=== PATIENT | male | born 2000 | race Caucasian/White ===

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

== ENCOUNTER 2021-05-04 16:01 | Inpatient (IN) | payer OTHER, SELFPAY ==
[2021-05-04] VITALS (31 sets, daily range): BP systolic 137–154; BP diastolic 75–100; PULSE 73–108; RESP 14–37; TEMP 37–37.2; O2SAT 98–100
--- NOTE | 2021-05-04 16:00 | DI.RAD_ITS ---
Exam(s) XR CHEST 2V PA LATERAL EXAM: XR CHEST 2V PA LATERAL CLINICAL HISTORY: Right chest wall pain, R/O Pneumothorax TECHNIQUE: 2D digital imaging was performed. COMPARISON: No exams were available for comparison FINDINGS: MEDIASTINUM: Slight leftward mediastinal shift. HEART: Normal. PULMONARY VASCULATURE: Normal. LUNGS: Clear. PLEURAL SPACE: There is a moderately large right pneumothorax. There is a slight shift of the medias tinum to the left. BONE:Within normal limits for the patient's age. OTHER FINDINGS:Normal. IMPRESSION: Moderately large right pneumothorax with the slight mediastinal shift to the left. Tension pneumotho rax should be considered. The virtual Radiology group discussed the findings with the emergency department on the date of the e xamination. DATA REPOSITORY: RADIATION DOSE DELIVERED:
--- NOTE | 2021-05-04 16:07 | ED.GENADUL_ITS ---
Discharge Plan Disposition Patient Disposition: [facility] INPATIENT Condition: Improving Discharge Details Clinical Impression: Spontaneous pneumothorax Admit Date/Time: 05/04/21 16:55 Admit Provider: Alvin Caballero Attending Provider: Alvin Caballero Primary Care Provider: Juliano Cast ED Provider: Rosey Rouse Discharge Data Discharge Date/Time-TO BE ENTERED AT DEPARTURE: 05/04/21 18:07 Medical Decision Making <Rosey Rouse - Last Filed: 05/04/21 19:48> 21-year-old male presents to the ER with chief complaint of right posterior chest wall pop and increased pain when taking a deep breath which occurred approximately 2 hours ago while riding a bike. He reports that this is happened to him previously and resolved in approximately 1 day. He was sent here from urgent care to rule out pneumothorax. She reports that since onset the pain is somewhat better. On initial exam he is alert and oriented, nontachycardic, does have lung sounds in all lung licea. No crackles or rhonchi. Non-smoker denies any drugs or alcohol. Call received from [place] by my colleague WANG Riggs radiologist, report positive pneumothorax. IV started on patient, medications hydrocortisone Zofran ordered as needed for pain and nausea. Patient remained hemodynamically stable at this time. Awaiting official [facility] report. Will prepare for possible pigtail chest tube insertion. Discussed plan of care with patient who verbalizes understanding. Page out to general surgery for possible admission. Imaging protocol: XR of the chest. Views: 2 views. COMPARISON: CT CHEST/ABD/PEL W 04/21/2019 9:27 PM FINDINGS: Lungs: Unremarkable. No consolidation. Pleural spaces: Moderate to large right apical pneumothorax measuring approximately 5 centimetres in craniocaudad dimension in the central apex. Heart/Mediastinum: Slight mediastinal shift to the left. No cardiomegaly. Bones/joints: Unremarkable. IMPRESSION: Moderate to large right apical pneumothorax 1653: Spoke with Dr. Caballero with general surgery discussed patient case in detail,he does agree to accept patient for admission and is in the process of viewing the chest x-ray. Dr. Trujillo at patient bedside for evaluation to place pigtail chest tube. Call made to patient's mother Gina at patient's request. Voicemail left for mom to call back. 1713: Patient verbally consented for pigtail chest tube insertion by myself and Dr. Trujillo. Patient on continuous cardiac monitoring. Procedure in process at this time. Patient tolerated well vital signs remained stable. 173: Procedure complete, XR at BS, Patient verbally reports improvement in symptoms after tube insertion. Patient remained hemodynamically stable alert and conversive throughout procedure. Plan is for patient to be admitted for observation. COMPARISON: CR XR CHEST 2V PA LATERAL 05/04/2021 4:17 PM FINDINGS: Tubes, catheters and devices: New right chest tube projects in right upper lung. Lungs: Unremarkable. No consolidation. Pleural spaces: The right pneumothorax has significantly decreased in size. It measures approximately 1.2 cm in craniocaudad dimension at the apex. Heart/Mediastinum: Unremarkable. No cardiomegaly. Bones/joints: Unremarkable. IMPRESSION: New right apically chest tube with significant reduction in the right apical pneumothorax which now measures 1.2 cm at the apex Thank you for allowing us to participate in the care of your patient. Dictated and Authenticated by: Sandra Gonzalez MD 1821: Patient transported up to the inpatient floor with chest tube in place. Hemodynamically stable. Discussed plan of care with patient verbalized understanding. HPI <Rosey Rouse - Last Filed: 05/04/21 19:48> General Mode of arrival: ambulatory . Date/Time Provider Initiated Documentation: 05/04/21 16:02 . Limitations to Documentation: no limitations . Information obtained by: patient . HPI Narrative: 21-year-old male presents to the ER with chief complaint of right posterior chest wall pop and increased pain when taking a deep breath which occurred approximately 2 hours ago while riding a bike. He reports that this is happened to him previously and resolved in approximately 1 day. He was sent here from urgent care to rule out pneumothorax. She reports that since onset the pain is somewhat better. On initial exam he is alert and oriented, nontachycardic, does have lung sounds in all lung licea/slightly diminished on right. No crackles or rhonchi. Non- smoker denies any drugs or alcohol. Related Data Home Medications Medication Instructions Recorded Confirmed omega-3 fatty acids 500 mg capsule 500 mg PO DAILY 11/19/20 05/04/21 Allergies Allergy/AdvReac Type Severity Reaction Status Date / Time No Known Allergies Allergy Unverified 05/04/21 16:08 General ALICE: 2 Review of Systems <Rosey Rouse - Last Filed: 05/04/21 19:48> All systems reviewed & are unremarkable except as noted in HPI and below Constitutional Constitutional: Reports system reviewed and no additional complaints, except as documented ENT Ears, Nose, Mouth, and Throat: Denies vertigo, Denies hoarseness and Denies neck pain Cardiovascular Cardiovascular: Denies acrocyanosis, Reports chest pain at rest (Posterior right chest pain), Denies syncope, Denies leg edema, Denies lightheadedness and Reports dyspnea Respiratory Respiratory: Denies cough, Denies hemoptysis, Reports pain on inspiration and Reports dyspnea Gastrointestinal Gastrointestinal: Denies abdominal pain, Denies nausea and Denies vomiting Musculoskeletal Musculoskeletal: Reports as per HPI, Reports back pain (Right lower chest wall pain with deep inspiration) and Denies neck pain Neurologic Neurologic: Denies vertigo and Denies syncope PFS <Rosey Rouse - Last Filed: 05/04/21 19:48> Medical History Acne vulgaris (02/06/18) Elevated blood pressure reading Fracture of humerus (03/15/13) Fall onto some rock. S/P closed reduction and percutaneous pinning; application of long arm splint. Routine sports examination for healthy child or adolescent (11/22/12) Varicocele (02/21/13) left- evaluated/followed by urology in the past Surgical History History of open reduction and internal fixation (ORIF) procedure Left arm 2013- humerus repaired. Social History Smoking/Tobacco Use Status: Never Second Hand Exposure: Yes (sister smokes) Smoking risk assessment performed?: Yes Alcohol Intake: never Drug use: Never Substance use type: does not use Household members: family and other Details: parents, sister/ sister's daughter Communication Needs: None Education Level: college Details: Count Includes [employer]- may go in person for the spring. 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 Appears stated age. Tall thin body habitus. Head: Normocephalic, no trauma. Eyes: Pupils PERRLA, Red reflex noted, EOM's intact. Eyelids symmetrical without lesions, discharge, or swelling. ENT: Bilateral TM's WNL, External ear normal to inspection, no mastoid TTP, swelling, or erythema, Nasal turbinates WNL, no nasal discharge. Normal dentition, Posterior pharynx WNL, no exudate. Chest: RRR, Normal S1, S2, distal pulses intact. Resp: Lungs clear to auscultation bilaterally, slightly diminished on right, no wheezes, rales, or rhonchi. Musculoskeletal: Normal gait, 5/5 strength to all four extremities. No signs of trauma. Skin: No suspicious rashes or lesions. Capillary refill less than 2 sec. Neurologic: Cranial nerves II-XII intact. Alert and oriented x 3. DTR's intact. Hematologic/Lymphatic: No ecchymosis, no lymphadenopathy. <Denice Trujillo DO - Last Filed: 05/04/21 19:25> Chest Tube Chest Tube 1: Chest Tube Location: mid axillary line (2nd IC space) Size of Ukrainian Tube (mm): 8 Chest Tube Prep: betadine prep Local Anesthetic: Lidocaine 1% and with Epi Amount of anesthesia used (mL): 5 Incision Made With: #11 blade Post Procedure: sutured to skin and sterile dressing applied Critical Care Time <Rosey Rouse - Last Filed: 05/04/21 19:48> Critical Care Time Critical Care Time: Yes Total Critical Care Time: 60 Attestation: I spent greater than 35 minutes addressing this patient's acute life threatening illness. This time was spent engaged in actions directly related to the patient's care. Failure to initiate these interventions would have likely resulted in clinically significant or life threatening deterioration in the patients condition.
[2021-05-04] MEDS: Normal Saline Flush 10 ML SYR IVP ×2 (16:30→21:58)
[2021-05-04] MEDS: Ondansetron O.D.T. 4 MG TABEF PO (16:49)
[2021-05-04] MEDS: HYDROcodone 5/Acetaminophen 325 TAB PO (16:50)
--- NOTE | 2021-05-04 16:50 | DI.VRAD_ITS ---
PROCEDURE INFORMATION: Exam: XR Chest Exam date and time: 05/04/2021 4:07 PM Age: 21 years old Clinical indication: Other: Right chest wall pain, R/O ptx TECHNIQUE: Imaging protocol: XR of the chest. Views: 2 views. COMPARISON: CT CHEST/ABD/PEL W 04/21/2019 9:27 PM FINDINGS: Lungs: Unremarkable. No consolidation. Pleural spaces: Moderate to large right apical pneumothorax measuring approximately 5 centimetres in craniocaudad dimension in the central apex. Heart/Mediastinum: Slight mediastinal shift to the left. No cardiomegaly. Bones/joints: Unremarkable. IMPRESSION: Moderate to large right apical pneumothorax THIS REPORT CONTAINS FINDINGS THAT MAY BE CRITICAL TO PATIENT CARE. The findings were verbally communicated via telephone conference with BAYLEE SPEARS at 4:49 PM EDT on 05/04/2021. The findings were acknowledged and understood. Dictated and Authenticated by: Sandra Gonzalez MD. Ordering:CHRISTELLE Currie MD
--- NOTE | 2021-05-04 17:00 | DI.RAD_ITS ---
Exam(s) XR PORTABLE CHEST AP EXAM: XR PORTABLE CHEST AP CLINICAL HISTORY: post chest tube insertion TECHNIQUE: 2D digital imaging was performed. COMPARISON: CR,XR XR CHEST 2V PA LATERAL from 05/04/2021 FINDINGS: MEDIASTINUM: Normal. Midline. HEART: Normal. PULMONARY VASCULATURE: Normal. LUNGS: There has been interval placement of a right chest tube with the pigtail in the right lung ape x. No focal consolidation is seen. PLEURAL SPACE: There is no pleural effusion. There has been significant decrease in size of the righ t pneumothorax which now measures 1.2 cm cranio caudally at the apex. BONE:Within normal limits for the patient's age. OTHER FINDINGS:Normal. IMPRESSION: 1. Interval placement of a right chest tube with a significant decrease in size of the right pneumoth orax which now measures 1.2 cm at the apex. 2. The mediastinum is midline. DATA REPOSITORY: RADIATION DOSE DELIVERED:
--- NOTE | 2021-05-04 17:36 | DI.VRAD_ITS ---
PROCEDURE INFORMATION: Exam: XR Chest Exam date and time: 05/04/2021 5:12 PM Age: 21 years old Clinical indication: Device placement; Patient HX: S/P chest tube placement TECHNIQUE: Imaging protocol: XR of the chest. Views: 1 view. COMPARISON: CR XR CHEST 2V PA LATERAL 05/04/2021 4:17 PM FINDINGS: Tubes, catheters and devices: New right chest tube projects in right upper lung. Lungs: Unremarkable. No consolidation. Pleural spaces: The right pneumothorax has significantly decreased in size. It measures approximately 1.2 cm in craniocaudad dimension at the apex. Heart/Mediastinum: Unremarkable. No cardiomegaly. Bones/joints: Unremarkable. IMPRESSION: New right apically chest tube with significant reduction in the right apical pneumothorax which now measures 1.2 cm at the apex Dictated and Authenticated by: Sandra Gonzalez MD. Ordering:CHRISTELLE Currie MD
[2021-05-04 17:55] LABS: Source Nasal/Nares
[2021-05-04 18:07] LABS: Abs Immature Grans 0.02 10^3/uL (0.0-0.06); Absolute Basophil Count 0.02 10^3/uL (0.0-0.2); Absolute Eosinophil Count 0.02 10^3/uL (0.0-0.7); Absolute Lymphocyte Count 1.69 10^3/uL (1.2-3.4); Absolute Monocyte Count 0.62 10^3/uL (0.1-0.8); Absolute Neutrophil Count 5.81 10^3/uL (1.2-6.7); Basophils % 0.2; Eosinophils % 0.2; HCT 46.1 % (40.0-50.0); HGB 15.4 g/dL (13.5-17.5); Immature Grans % 0.2; Lymphocytes % 20.7; MCH 29.8 pg (27.0-33.0); MCHC 33.4 % (32.0-36.0); MCV 89.2 fL (80-95); MPV 10.5 fL (8.0-11.0); Monocytes % 7.6; Neutrophils % 71.1; Nucleated RBC 0 %; Platelet Count 156 10^3/uL (130-400); RBC 5.17 10^6/uL (4.36-5.78); RDW 11.8 % (11.8-14.1); RDW-SD 38.5 fL; WBC 8.18 10^3/uL (4.4-10.8)
[2021-05-04 18:23] LABS: ALT 19 U/L (16-63); AST 14 U/L (15-37); Albumin 4.1 g/dL (3.4-5.0); Alkaline Phosphatase 75 U/L (46-116); BUN 14 mg/dL (7-18); Bilirubin, Total 0.8 mg/dL (0.2-1.0); Calcium 8.5 mg/dL (8.5-10.1); Chloride 105 mmol/L (98-107); Glucose 103 mg/dL (74-106); Potassium 3.5 mmol/L (3.5-5.1); Sodium 143 mmol/L (136-145); Total Protein 6.9 g/dL (6.4-8.2)
[2021-05-04] MEDS: Heparin 5,000 UNITS/ML VIAL 5000 UNITS SC (18:55)
[2021-05-04] MEDS: Normal Saline 1,000 ML 30 ML IV (19:05)
[2021-05-04 21:02] LABS: COVID-19 PCR Negative (Negative)
[2021-05-04] MEDS: HYDROmorphone 2 MG/ML VIAL 1 MG IVP (21:58)
[2021-05-04] MEDS: Ondansetron 4 MG/2 ML VIAL IVP (21:58)
--- NOTE | 2021-05-04 23:25 | HPE_ITS ---
Date of service: 05/04/21 Time of Service: 21:25 Assessment and Plan Assessment and plan (1) Spontaneous pneumothorax: Start date: 05/04/21 Status: Acute Assessment and plan: Leave thoracostomy tube to wall suction. Repeat chest x-ray in the morning. Regular diet and pain control History of Present Illness History of Present Illness Chief Complaint: Chest pain/ shortness of breath Whenever Narrative: A 21-year-old gentleman came in with a 1 day history of right-sided chest pain along with some shortness of breath. He believes he has had these symptoms before in the past but they resolved spontaneously. The pain is sharp and located in on the right side of the chest. Taking deep breaths makes it worse. Nothing seems to make it better. Denies fever chills nausea or vomiting. A pigtail thoracostomy tube was placed on the right side in the emergency room. Review of Systems All systems reviewed & are unremarkable except as noted in HPI and below PFSH Medical History Acne vulgaris (02/06/18) Elevated blood pressure reading Fracture of humerus (03/15/13) Fall onto some rock. S/P closed reduction and percutaneous pinning; application of long arm splint. Routine sports examination for healthy child or adolescent (11/22/12) Varicocele (02/21/13) left- evaluated/followed by urology in the past Surgical History History of open reduction and internal fixation (ORIF) procedure Left arm 2013- humerus repaired. Social History Smoking/Tobacco Use Status: Never Second Hand Exposure: Yes (sister smokes) Smoking risk assessment performed?: Yes Alcohol Intake: never Drug use: Never Substance use type: does not use Household members: family and other Details: parents, sister/ sister's daughter Communication Needs: None Education Level: college Details: [employer]- may go in person for the spring. 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 Do you feel safe at home: Yes Do you feel safe in your relationship?: Yes Meds Allergies and Home Medications Allergies Allergy/AdvReac Type Severity Reaction Status Date / Time No Known Allergies Allergy Unverified 05/04/21 16:08 Home Medications Medication Instructions Recorded Confirmed Type omega-3 fatty acids 500 mg capsule 500 mg PO DAILY 11/19/20 05/04/21 History Exam Const General: cooperative, healthy appearing and no acute distress [facility] Head: normal to inspection, normocephalic and atraumatic Eyes General: appearance normal, both eyes and all related structures Neck Neck: normal visual inspection, full ROM and trachea midline Chest Chest: normal palpation of entire chest wall, no localized rib tenderness and other (Right-sided pigtail thoracostomy tube in place) Resp Effort & Inspection: normal respiratory effort, able to speak in complete sentences and no tracheal deviation Cardio Rate: regular rate Rhythm: regular rhythm Pulses: dorsalis pedis present GI Inspection: normal to inspection Palpation: soft and nontender Back/Spine/Pelvis Back: no CVA tenderness Skin General skin exam: no rashes or lesions noted Neuro General: patient alert, patient awake and patient oriented x3 Extrem General: normal to inspection and full ROM Psych Appearance: grossly normal and well kempt Mental Status: mental status grossly normal Speech and Movement: speech and movement normal Results Labs Result diagrams: 05/04/21 17:55 05/04/21 17:55 Labs: Laboratory Results - last 24 hr 05/04/21 05/04/21 05/04/21 17:40 17:55 17:55 WBC 8.18 RBC 5.17 Hgb 15.4 Hct 46.1 MCV 89.2 MCH 29.8 MCHC 33.4 RDW 11.8 Plt Count 156 MPV 10.5 Immature Gran % 0.2 Neutrophils % 71.1 Lymphocytes % 20.7 Monocytes % 7.6 Eosinophils % 0.2 Basophils % 0.2 Nucleated RBC % 0 Absolute Neutrophils 5.81 Absolute Lymphocytes 1.69 Absolute Monocytes 0.62 Absolute Eosinophils 0.02 Absolute Basophils 0.02 Sodium 143 Potassium 3.5 Chloride 105 Carbon Dioxide 29.0 Anion Gap 9.0 BUN 14 Creatinine 1.0 Estimated GFR/1.73 m2 >= 60.00 Glucose 103 Calcium 8.5 Total Bilirubin 0.8 AST 14 L ALT 19 Alkaline Phosphatase 75 Total Protein 6.9 Albumin 4.1 COVID-19 Source Nasal/nares SARS-CoV-2 (PCR) Negative Last Vital Signs Temp 98.6 F 06/07/21 22:35 Pulse 86 05/04/21 22:35 Resp 22 05/04/21 22:35 BP 149/88 H 05/04/21 22:35 Pulse Ox 99 05/04/21 22:35 COVID-19 Screening Have you, or household traveled for leisure in last 14 days?: Yes Had IN PERSON contact w/suspected or confirmed C-19 person: No
[2021-05-05] MEDS: Heparin 5,000 UNITS/ML VIAL 5000 UNITS SC ×2 (06:04→18:19)
[2021-05-05] MEDS: Normal Saline Flush 10 ML SYR IVP ×3 (06:44→22:03)
--- NOTE | 2021-05-05 07:00 | DI.RAD_ITS ---
Exam(s) XR CHEST 2V PA LATERAL EXAM: XR CHEST 2V PA LATERAL CLINICAL HISTORY: f/u chest tube TECHNIQUE: 2D digital imaging was performed. COMPARISON: CR,XR XR CHEST 2V PA LATERAL from 05/04/2021 CR,XR XR PORTABLE CHEST AP from 05/04/2021 FINDINGS: MEDIASTINUM: Normal. HEART: Normal. PULMONARY VASCULATURE: Normal. LUNGS: Clear. PLEURAL SPACE: There is a stable tiny right apical pneumothorax. No left pneumothorax. No pleural e ffusion. The right chest tube is stable in position. BONE:Within normal limits for the patient's age. OTHER FINDINGS:Normal. IMPRESSION: Stable tiny residual right apical pneumothorax. DATA REPOSITORY: RADIATION DOSE DELIVERED:
[2021-05-05 07:28] LABS: Abs Immature Grans 0.01 10^3/uL (0.0-0.06); Absolute Basophil Count 0.02 10^3/uL (0.0-0.2); Absolute Eosinophil Count 0.02 10^3/uL (0.0-0.7); Absolute Lymphocyte Count 1.16 10^3/uL (1.2-3.4); Absolute Neutrophil Count 4.29 10^3/uL (1.2-6.7); Basophils % 0.3; Eosinophils % 0.3; HGB 15.7 g/dL (13.5-17.5); Immature Grans % 0.2; MCH 29.4 pg (27.0-33.0); MCHC 32.7 % (32.0-36.0); MCV 89.9 fL (80-95); MPV 10.7 fL (8.0-11.0); Monocytes % 9.8; Neutrophils % 70.4; Nucleated RBC 0 %; Platelet Count 150 10^3/uL (130-400); RBC 5.34 10^6/uL (4.36-5.78); RDW 11.9 % (11.8-14.1); RDW-SD 39.2 fL
--- NOTE | 2021-05-05 07:29 | DI.VRAD_ITS ---
PROCEDURE INFORMATION: Exam: XR Chest Exam date and time: 05/05/2021 6:19 AM Age: 21 years old Clinical indication: Device placement; Prior surgery; Surgery date: Post-operative (0-2 days); Surgery type: Chest tube placement TECHNIQUE: Imaging protocol: XR of the chest. Views: 2 views. COMPARISON: CR XR PORTABLE CHEST AP 05/04/2021 5:25 PM FINDINGS: Lungs: Hyperinflation and interstitial prominence. Pleural spaces: Stable positioning of right pleural catheter with trace right apical pneumothorax. Heart/Mediastinum: Normal configuration of the heart. Bones/joints: Unremarkable. IMPRESSION: Stable positioning of right pleural catheter with trace right apical pneumothorax. Dictated and Authenticated by: Ramon Julian MD. Ordering:ROSA Esquivel MD
[2021-05-05 07:35] VITALS: BP 131/79; PULSE 83; RESP 21; TEMP 36.7; O2SAT 97
[2021-05-05 07:40] LABS: Anion Gap 3.3 mmol/L (3-11); BUN 10 mg/dL (7-18); CO2 32.7 mmol/L (21.0-32.0); CREATININE 1.1 mg/dL (0.70-1.30); Calcium 8.8 mg/dL (8.5-10.1); Chloride 104 mmol/L (98-107); Glucose 99 mg/dL (74-106); Potassium 3.5 mmol/L (3.5-5.1); Sodium 140 mmol/L (136-145)
[2021-05-05 08:30] VITALS: O2SAT 99
[2021-05-05 09:00] VITALS: O2SAT 94
--- NOTE | 2021-05-05 09:27 | PDOC.CMIN ---
- If Service Date Differs Date of service: 05/05/21 Time of Service: 09:27 Care Management Initial Assess REASON FOR HOSPITALIZATION:: pneumothorax PAST MEDICAL HISTORY/PAST SURGICAL HISTORY:: Medical History . Acne vulgaris (02/06/18). Elevated blood pressure reading. Fracture of humerus (03/15/13). Fall onto some rock. S/P closed reduction and percutaneous pinning; application of long arm splint. Routine sports examination for healthy child or adolescent (11/22/12). Varicocele (02/21/13). left- evaluated/followed by urology in the past. Surgical History . History of open reduction and internal fixation (ORIF) procedure. Left arm 2013- humerus repaired. PREVIOUS FUNCTIONAL STATUS/SOCIAL/FAMILY SUPPORTS:: Francisco lives in [place], [place] with his parents. 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 Francisco is independent at baseline. CURRENT FUNCTIONAL STATUS:: Francisco was sitting up visiting with his mother when CM met with him. He was polite and answered questions willingly, if briefly. Francisco stated that he hopes to be able to go home tomorrow. If his lung re-expands and he is able to have the chest tube removed, it is likely he will. ADVANCE DIRECTIVES:: none on file Has patient been provided with info about the portal/API?: No Did the patient sign up for the portal?: No CODE STATUS:: Full Code INSURANCE COVERAGE / FINANCIAL ISSUES:: [employer] CURRENT HOME/COMMUNITY SERVICES/EQUIPMENT:: none PRIMARY CARE PHYSICIAN:: Juliano Cast POTENTIAL DISCHARGE NEEDS:: Follow up with surgery, PCP and plan of care PATIENT/FAMILY EDUCATION NEEDS:: Review of discharge instructions, follow up plan, limitations, Ask Me Three TRANSPORTATION:: via private vehicle with parent PLAN:: Francisco will be discharged home with no new services. He will follow up with his surgeon, PCP and plan of care and transport with family. CM will continue to support Francisco and his discharge needs.
[2021-05-05 12:01] VITALS: BP 123/77; PULSE 76; RESP 22; TEMP 36.6; O2SAT 98
--- NOTE | 2021-05-05 13:01 | W.PM.PROGNOT ---
Date of Service Date of service: 05/05/21 Time of Service: 13:03 Assessment and Plan Assessment and plan (1) Spontaneous pneumothorax: Status: Acute Assessment and plan: Thoracostomy tube to water seal. Repeat chest x-ray in the morning. Regular diet and pain control. Will likely remove thoracostomy tube tomorrow and discharge home Exam Const General: cooperative, healthy appearing and no acute distress Chest Chest: normal palpation of entire chest wall, no localized rib tenderness and other (Right-sided pigtail thoracostomy tube in place) Resp Effort & Inspection: normal respiratory effort, able to speak in complete sentences and no tracheal deviation Cardio Rate: regular rate Rhythm: regular rhythm Pulses: dorsalis pedis present GI Inspection: normal to inspection Palpation: soft and nontender Neuro General: patient alert, patient awake and patient oriented x3 Objective Last Vital Signs Temp 97.9 F 05/05/21 12:01 Pulse 76 05/05/21 12:01 Resp 22 05/05/21 12:01 BP 123/77 05/05/21 12:01 Pulse Ox 98 05/05/21 12:01 Laboratory Results - last 24 hr 05/04/21 05/04/21 05/04/21 17:40 17:55 17:55 WBC 8.18 RBC 5.17 Hgb 15.4 Hct 46.1 MCV 89.2 MCH 29.8 MCHC 33.4 RDW 11.8 Plt Count 156 MPV 10.5 Immature Gran % 0.2 Neutrophils % 71.1 Lymphocytes % 20.7 Monocytes % 7.6 Eosinophils % 0.2 Basophils % 0.2 Nucleated RBC % 0 Absolute Neutrophils 5.81 Absolute Lymphocytes 1.69 Absolute Monocytes 0.62 Absolute Eosinophils 0.02 Absolute Basophils 0.02 Sodium 143 Potassium 3.5 Chloride 105 Carbon Dioxide 29.0 Anion Gap 9.0 BUN 14 Creatinine 1.0 Estimated GFR/1.73 m2 >= 60.00 Glucose 103 Calcium 8.5 Total Bilirubin 0.8 AST 14 L ALT 19 Alkaline Phosphatase 75 Total Protein 6.9 Albumin 4.1 COVID-19 Source Nasal/nares SARS-CoV-2 (PCR) Negative 05/05/21 05/05/21 06:55 06:55 WBC 6.10 RBC 5.34 Hgb 15.7 Hct 48.0 MCV 89.9 MCH 29.4 MCHC 32.7 RDW 11.9 Plt Count 150 MPV 10.7 Immature Gran % 0.2 Neutrophils % 70.4 Lymphocytes % 19.0 Monocytes % 9.8 Eosinophils % 0.3 Basophils % 0.3 Nucleated RBC % 0 Absolute Neutrophils 4.29 Absolute Lymphocytes 1.16 L Absolute Monocytes 0.60 Absolute Eosinophils 0.02 Absolute Basophils 0.02 Sodium 140 Potassium 3.5 Chloride 104 Carbon Dioxide 32.7 H Anion Gap 3.3 BUN 10 Creatinine 1.1 Estimated GFR/1.73 m2 >= 60.00 Glucose 99 Calcium 8.8 Total Bilirubin AST ALT Alkaline Phosphatase Total Protein Albumin COVID-19 Source SARS-CoV-2 (PCR)
[2021-05-05 16:10] VITALS: BP 138/81; PULSE 77; RESP 17; TEMP 37.1; O2SAT 98
[2021-05-05 21:04] VITALS: BP 128/84; PULSE 73; RESP 14; TEMP 36.8; O2SAT 97
[2021-05-05] MEDS: HYDROmorphone 2 MG/ML VIAL 1 MG IVP (22:02)
[2021-05-05] MEDS: Ondansetron 4 MG/2 ML VIAL IVP (22:02)
[2021-05-06 02:30] VITALS: BP 122/76; PULSE 56; RESP 16; TEMP 36.4; O2SAT 97
[2021-05-06] MEDS: Heparin 5,000 UNITS/ML VIAL 5000 UNITS SC ×2 (06:32→17:57)
[2021-05-06 06:48] LABS: Abs Immature Grans 0.02 10^3/uL (0.0-0.06); Absolute Basophil Count 0.02 10^3/uL (0.0-0.2); Absolute Eosinophil Count 0.08 10^3/uL (0.0-0.7); Absolute Lymphocyte Count 1.41 10^3/uL (1.2-3.4); Absolute Monocyte Count 0.83 10^3/uL (0.1-0.8); Absolute Neutrophil Count 5.15 10^3/uL (1.2-6.7); Basophils % 0.3; Eosinophils % 1.1; HCT 50.8 % (40.0-50.0); HGB 16.2 g/dL (13.5-17.5); Immature Grans % 0.3; Lymphocytes % 18.8; MCH 29.1 pg (27.0-33.0); MCHC 31.9 % (32.0-36.0); MCV 91.4 fL (80-95); MPV 10.6 fL (8.0-11.0); Monocytes % 11.1; Neutrophils % 68.4; Nucleated RBC 0 %; Platelet Count 166 10^3/uL (130-400); RBC 5.56 10^6/uL (4.36-5.78); RDW-SD 40.6 fL; WBC 7.51 10^3/uL (4.4-10.8)
--- NOTE | 2021-05-06 07:00 | DI.RAD_ITS ---
Exam(s) XR CHEST 2V PA LATERAL EXAM: XR CHEST 2V PA LATERAL CLINICAL HISTORY: f/u pneumo TECHNIQUE: 2D digital imaging was performed. COMPARISON: CR,XR XR CHEST 2V PA LATERAL from 05/05/2021 FINDINGS: MEDIASTINUM: Normal. HEART: Normal. PULMONARY VASCULATURE: Normal. LUNGS: Clear. PLEURAL SPACE: There is again seen a right pigtail chest tube. There appears to be a small persisten t apical right pneumothorax. BONE:Within normal limits for the patient's age. OTHER FINDINGS:Subcutaneous emphysema along the right chest wall. IMPRESSION: 1. Right chest tube in stable position. 2. Persistent small right apical pneumothorax. 3. Subcutaneous edema along the right chest wall. DATA REPOSITORY: RADIATION DOSE DELIVERED:
--- NOTE | 2021-05-06 07:09 | DI.VRAD_ITS ---
PROCEDURE INFORMATION: Exam: XR Chest Exam date and time: 05/06/2021 12:01 AM Age: 21 years old Clinical indication: Condition or disease; Other: F/u pneumo; Prior surgery; Surgery date: 3-7 days post-operative; Surgery type: Chest tube; Patient HX: F/u right pneumothorax TECHNIQUE: Imaging protocol: XR of the chest. Views: 2 views. COMPARISON: CR XR CHEST 2V PA LATERAL 05/05/2021 6:17 AM FINDINGS: Tubes, catheters and devices: Right-sided pigtail percutaneous pleural drainage catheter in place . Equivocal apical pneumothorax although the apices appear fairly symmetric. Soft tissue gas noted in the right axilla. Lungs: Unremarkable. No consolidation. Pleural spaces: See Tubes, catheters and devices finding. Heart/Mediastinum: Unremarkable. No cardiomegaly. Bones/joints: Unremarkable. IMPRESSION: Right-sided pigtail percutaneous pleural drainage catheter in place . Equivocal apical pneumothorax although the apices appear fairly symmetric. Soft tissue gas noted in the right axilla. Dictated and Authenticated by: Noman Reich MD. Ordering:ROSA Esquivel MD
[2021-05-06 07:11] LABS: Anion Gap 3.7 mmol/L (3-11); BUN 14 mg/dL (7-18); CO2 32.3 mmol/L (21.0-32.0); CREATININE 1.1 mg/dL (0.70-1.30); Calcium 8.8 mg/dL (8.5-10.1); Chloride 105 mmol/L (98-107); Glucose 98 mg/dL (74-106); Potassium 4.4 mmol/L (3.5-5.1); Sodium 141 mmol/L (136-145)
[2021-05-06 07:44] VITALS: BP 113/66; PULSE 64; RESP 18; TEMP 36.7; O2SAT 97
--- NOTE | 2021-05-06 10:35 | W.PM.PROGNOT ---
Date of Service Date of service: 05/06/21 Time of Service: 10:35 Assessment and Plan Assessment and plan (1) Spontaneous pneumothorax: Status: Acute Assessment and plan: Thoracostomy tube to water seal. Repeat chest x-ray showed persistent small right apical pneumothorax. Chest tube will need to remain in place. Regular diet and pain control Subjective Subjective Interval history since last seen: Patient denies any chest pain or SOB. He states that he can hear bubbling when he holds his breath and bears down. Exam Const General: cooperative, healthy appearing and comfortable Orientation: alert and oriented x3 Resp Effort & Inspection: normal respiratory effort, no audible wheezes and no cough Other: Thoracostomy tube to water seal. (+) air leak Objective Last Vital Signs Temp 36.7 C 05/06/21 07:44 Pulse 64 05/06/21 07:44 Resp 18 05/06/21 07:44 BP 113/66 05/06/21 07:44 Pulse Ox 97 05/06/21 07:44 Laboratory Results - last 24 hr 05/06/21 05/06/21 06:00 06:00 WBC 7.51 RBC 5.56 Hgb 16.2 Hct 50.8 H MCV 91.4 MCH 29.1 MCHC 31.9 L RDW 12.0 Plt Count 166 MPV 10.6 Immature Gran % 0.3 Neutrophils % 68.4 Lymphocytes % 18.8 Monocytes % 11.1 Eosinophils % 1.1 Basophils % 0.3 Nucleated RBC % 0 Absolute Neutrophils 5.15 Absolute Lymphocytes 1.41 Absolute Monocytes 0.83 H Absolute Eosinophils 0.08 Absolute Basophils 0.02 Sodium 141 Potassium 4.4 D Chloride 105 Carbon Dioxide 32.3 H Anion Gap 3.7 BUN 14 Creatinine 1.1 Estimated GFR/1.73 m2 >= 60.00 Glucose 98 Calcium 8.8
[2021-05-06 11:15] VITALS: O2SAT 95
--- NOTE | 2021-05-06 11:22 | PDOC.CMPRO ---
- If Service Date Differs Date of service: 05/06/21 Time of Service: 11:22 Care Management Progress Note S/O: Francisco was sitting up in his chair on his computer when CM met with him. He reported that per MD, there is still a leak. He continues to be monitored closely with a chest tube in place. He is tolerating a regular diet and his pain is well controlled. CM will continue to follow. A: Francisco is a 21 year old male admitted to [facility] for R pneumothorax on 05/04/21. P: Francisco will be discharged home with no new services. He will follow up with his surgeon, PCP and plan of care and transport with family. CM will continue to support Francisco and his discharge needs.
[2021-05-06 15:20] VITALS: BP 119/71; PULSE 81; RESP 18; TEMP 37.2; O2SAT 95
[2021-05-06 23:00] VITALS: BP 120/70; PULSE 80; RESP 18; TEMP 37; O2SAT 95
[2021-05-07] MEDS: Heparin 5,000 UNITS/ML VIAL 5000 UNITS SC ×2 (06:35→18:03)
[2021-05-07 06:44] LABS: Abs Immature Grans 0.01 10^3/uL (0.0-0.06); Absolute Basophil Count 0.01 10^3/uL (0.0-0.2); Absolute Eosinophil Count 0.14 10^3/uL (0.0-0.7); Absolute Monocyte Count 0.62 10^3/uL (0.1-0.8); Absolute Neutrophil Count 3.29 10^3/uL (1.2-6.7); Basophils % 0.2; Eosinophils % 2.7; Immature Grans % 0.2; Lymphocytes % 22.8; MCH 29.2 pg (27.0-33.0); MCV 91.2 fL (80-95); MPV 10.5 fL (8.0-11.0); Monocytes % 11.8; Neutrophils % 62.3; Nucleated RBC 0 %; Platelet Count 160 10^3/uL (130-400); RBC 5.48 10^6/uL (4.36-5.78); RDW 11.9 % (11.8-14.1); RDW-SD 39.8 fL; WBC 5.27 10^3/uL (4.4-10.8)
[2021-05-07 06:58] LABS: Anion Gap 2.7 mmol/L (3-11); BUN 15 mg/dL (7-18); CO2 33.3 mmol/L (21.0-32.0); Chloride 107 mmol/L (98-107); Glucose 100 mg/dL (74-106); Potassium 4.2 mmol/L (3.5-5.1); Sodium 143 mmol/L (136-145)
[2021-05-07 07:10] VITALS: O2SAT 99
[2021-05-07 07:20] VITALS: BP 128/80; PULSE 65; RESP 18; TEMP 36.3; O2SAT 99
--- NOTE | 2021-05-07 08:35 | DI.RAD_ITS ---
Exam(s) XR CHEST 2V PA LATERAL EXAM: XR CHEST 2V PA LATERAL CLINICAL HISTORY: f/u chest tube TECHNIQUE: 2D digital imaging was performed. COMPARISON: CR,XR XR CHEST 2V PA LATERAL from 05/06/2021 FINDINGS: The right chest tube remains in place. There has been no change in size of the small right pneumotho rax. The lungs are otherwise clear. Some subcutaneous air is some seen along the right ribs. IMPRESSION: Stable size of a right pneumothorax. No change in chest tube position. DATA REPOSITORY: RADIATION DOSE DELIVERED:
--- NOTE | 2021-05-07 08:43 | W.PM.PROGNOT ---
Date of Service Date of service: 05/07/21 Time of Service: 08:43 Assessment and Plan Assessment and plan (1) Spontaneous pneumothorax: Status: Acute Assessment and plan: Thoracostomy tube to water seal. Repeat chest x-ray later this morning. He continues to have a forced expiratory air leak. l Subjective Subjective Interval history since last seen: Patient states he believes he continues to have an air leak. He hears the air every time he coughs or bears down. He denies having any pain or SOB. Exam Const General: cooperative, healthy appearing and comfortable Orientation: alert and oriented x3 Resp Effort & Inspection: normal respiratory effort, no audible wheezes and no cough Other: thorcostomy tube in place. With air leak noted. Objective Last Vital Signs Temp 37.0 C 05/06/21 23:00 Pulse 80 05/06/21 23:00 Resp 18 05/06/21 23:00 BP 120/70 05/06/21 23:00 Pulse Ox 95 05/06/21 23:00 Laboratory Results - last 24 hr 05/07/21 05/07/21 06:25 06:25 WBC 5.27 RBC 5.48 Hgb 16.0 Hct 50.0 MCV 91.2 MCH 29.2 MCHC 32.0 RDW 11.9 Plt Count 160 MPV 10.5 Immature Gran % 0.2 Neutrophils % 62.3 Lymphocytes % 22.8 Monocytes % 11.8 Eosinophils % 2.7 Basophils % 0.2 Nucleated RBC % 0 Absolute Neutrophils 3.29 Absolute Lymphocytes 1.20 Absolute Monocytes 0.62 Absolute Eosinophils 0.14 Absolute Basophils 0.01 Sodium 143 Potassium 4.2 Chloride 107 Carbon Dioxide 33.3 H Anion Gap 2.7 L BUN 15 Creatinine 1.0 Estimated GFR/1.73 m2 >= 60.00 Glucose 100 Calcium 9.0
[2021-05-07] MEDS: Normal Saline Flush 10 ML SYR IVP (12:49)
[2021-05-07] MEDS: Acetaminophen 500 MG TAB 1000 MG PO (12:49)
--- NOTE | 2021-05-07 14:50 | CHAPLAIN ---
Francisco was up in his chair when I visited. I explained my role and offered support. His mom, a former [facility] nurse, who now works at [employer], has been visiting Francisco.
--- NOTE | 2021-05-07 15:19 | PDOC.CMPRO ---
- If Service Date Differs Date of service: 05/07/21 Time of Service: 15:19 Care Management Progress Note S/O: Francisco was sitting up in his chair when CM met with him. Per report, he will have a repeat chest x ray today. He continues to have a forced expiratory air leak. He reported that he is comfortable, and has what he needs. CM will continue to follow. A: Francisco is a 21 year old male admitted to [facility] for R pneumothorax on 05/04/21. P: Francisco will be discharged home with no new services. He will follow up with his surgeon, PCP and plan of care and transport with family. CM will continue to support Francisco and his discharge needs.
--- NOTE | 2021-05-07 16:55 | PHACLINREV_ITS ---
Pharmacy Admission Review - Admission Clinical Review (Last Reviewed 05/04/21 @ 23:28 by Alvin Caballero DO) Spontaneous pneumothorax (Acute) No Known Allergies Allergy (Unverified 05/04/21 16:08) Resuscitation Status Full Code Height 6 ft 1 in Weight 70.76 kg - Comments Comments/Follow Ups: Repeat chest xray-no change in size of pneumothorax, chest tube in place, slight leak, regular diet. Pain 02/04 (not using Ketorolac or Dilaudid, only APAP) - Renal Dosing Renal Dosing: BUN 15 mg/dL (7-18) 05/07/21 06:25 Creatinine 1.0 mg/dL (0.70-1.30) 05/07/21 06:25 Medications needing adjustments: Reviewed (CrCl~118ml/min) - Anticoagulation Anticoagulation: Hgb 16.0 g/dL (13.5-17.5) 05/07/21 06:25 Hct 50.0 % (40.0-50.0) 05/07/21 06:25 Plt Count 160 10^3/uL (130-400) 05/07/21 06:25 Creatinine 1.0 mg/dL (0.70-1.30) 05/07/21 06:25 DVT Prohphylaxis: Reviewed Medications: Heparin - Opiate Usage Evaluate Pain Scale/Pains Meds: Reviewed (Dilaudid) Scheduled Bowel Reg ordered if on Opiates?: No (hasn't used Dilaudid x2 d) - Relevant Labs Sodium 143 mmol/L (136-145) 05/07/21 06:25 Potassium 4.2 mmol/L (3.5-5.1) 05/07/21 06:25 Chloride 107 mmol/L (98-107) 05/07/21 06:25 Electrolytes, C-Reactive P, ESR: Reviewed - DM Control DM Control: Glucose 100 mg/dL (74-106) 05/07/21 06:25 Insulin Dosing: N/A - Heart Failure/AK EF%, IOANA's, B-Blockers, Diuretics: N/A - BP Control BP Control: Blood Pressure 128/80 If elevated: N/A - IV to PO Switch IV Medications: Reviewed (Ketorolac prn, Zofran, Dilaudid) - Home Meds Relevent Home Meds Not ordered & why?: [place]-3
[2021-05-07 17:11] VITALS: BP 136/88; PULSE 73; RESP 19; TEMP 37.3; O2SAT 97
[2021-05-07 23:25] VITALS: BP 120/70; PULSE 69; RESP 16; TEMP 36.6; O2SAT 98
--- NOTE | 2021-05-08 | DI.CT_ITS ---
Exam(s) CT CHEST W EXAM: CT CHEST W CLINICAL HISTORY: persistent pneumothorax TECHNIQUE: Imaging Protocol: Axial computed tomography images with coronal and sagittal reformatted images were created and reviewed CONTRAST MATERIAL: Intravenous: Omnipaque 350 Contrast volume:70 ml. COMPARISON: CT CT CHEST/ABD/PEL W from 04/21/[address] CHEST/ABD/PEL W from 04/21/2019 CR,XR XR CHEST 2V PA LATERAL from 05/04/2021 CR,XR XR CHEST 2V PA LATERAL from 05/04/2021 CR XR CHEST 2V PA LATERAL from 05/07/2021 FINDINGS: There is a small pneumothorax seen at the right lung apex. There is a chest tube in place with the p igtail catheter seen in the anterior chest. A portion of the pigtail appears to project outside the pleural cavity. There is a significant amount of residual air seen within the chest wall. The lungs appear clear. There are a few tiny blebs seen at both lung apices. No pulmonary nodules or masses are seen. The heart size is normal. There are no pleural or pericardial effusions. No acute rib or spine fractures are seen. There is an old compression fracture of L1. IMPRESSION: Small right pneumothorax. Portion of the pigtail portion of the chest tube appears to project outsid e of the pleural cavity. RADIATION DOSE DELIVERED: 390.29mGy.cm Total DLP DATA REPOSITORY: All CT scans at this facility are submitted to the National Radiology Data Registry (NRDR) Dose Index Registry (DIR) with the [employer] (ACR). RADIATION OPTIMIZATION: All CT scans at this facility use at least one of these dose optimization te chniques: automated exposure control; mA and/or kV adjustment per patient size (includes targeted exa ms where dose is matched to clinical indication); or iterative reconstruction.
[2021-05-08 00:41] VITALS: RESP 16
[2021-05-08] MEDS: Heparin 5,000 UNITS/ML VIAL 5000 UNITS SC ×2 (05:57→19:20)
[2021-05-08 07:25] VITALS: RESP 16; O2SAT 99
[2021-05-08 07:40] VITALS: BP 142/82; PULSE 77; RESP 18; TEMP 36.9; O2SAT 99
[2021-05-08] MEDS: Omnipaque 350 MG/ML 100 ML BTL IJ (13:03)
[2021-05-08] MEDS: Normal Saline - Diluent 50 ML VIAL IV (13:04)
--- NOTE | 2021-05-08 13:28 | W.PM.PROGNOT ---
Date of Service Date of service: 05/08/21 Time of Service: 13:28 Assessment and Plan Assessment and plan (1) Spontaneous pneumothorax: Status: Acute Assessment and plan: Thoracostomy tube to water seal. He continues to have a forced expiratory air leak. Will order Chest CT Continue with reg. diet Activity and ambulation as tolerated. Denies having any pain or SOB. No fevers or chills. Subjective Subjective Interval history since last seen: Patient is feeling well. Denies any chest pain or SOB. Exam Const General: cooperative, healthy appearing and comfortable Orientation: alert and oriented x3 Resp Effort & Inspection: normal respiratory effort, no audible wheezes and no cough Other: thoracostomy tube in place. (+) air leak. Objective Last Vital Signs Temp 36.9 C 05/08/21 07:40 Pulse 77 05/08/21 07:40 Resp 18 05/08/21 07:40 BP 142/82 H 05/08/21 07:40 Pulse Ox 99 05/08/21 07:40
--- NOTE | 2021-05-08 15:40 | CMPROGNOTE_ITS ---
- If Service Date Differs Date of service: 05/08/21 Time of Service: 15:40 Care Management Progress Note S/O: Francisco was having a CT scan when CM attempted to meet with him, but his father was in the room visiting. CM spoke with Inderjit, his father, who stated that he's probably your easiest patient, which aligns with his personality. Francisco returned from his CT scan and reported that he does not have any needs at this time, as he awaits a visit from the surgical team regarding the results of his CT. CM will continue to follow. A: Francisco is a 21 year old male admitted to [facility] for R pneumothorax on 05/04/21. P: Francisco will be discharged home with no new services. He will follow up with his surgeon, PCP and plan of care and transport with family. CM will continue to support Francisco and his discharge needs.
[2021-05-08 16:39] VITALS: BP 129/84; PULSE 83; RESP 18; TEMP 37.1; O2SAT 97
[2021-05-08 19:35] VITALS: RESP 14
[2021-05-08 23:49] VITALS: BP 117/64; PULSE 73; RESP 18; TEMP 36.3; O2SAT 97
--- NOTE | 2021-05-09 | DI.CT_ITS ---
Exam(s) CT CHEST WO EXAM: CT CHEST WO CLINICAL HISTORY: pneumothorax. TECHNIQUE: Imaging protocol: Axial computed tomography images were obtained and coronal and sagittal reformatted images were created and reviewed. COMPARISON: CT CT CHEST W from 05/08/2021 FINDINGS: The examination is limited due to patient motion artifact. Tracheobronchial tree: Patent where visualized. Pulmonary parenchyma: No consolidation or dominant measurable mass. No architectural distortion. Mediastinum and [place]: No dominant adenopathy or fluid collection. There does appear to be a small pne umomediastinum superiorly. Pleura: There is a tiny left apical pneumothorax. There is a moderate right pneumothorax. This has increased in size compared to the CT scan from 05/08/2021. No pleural effusion. Heart: The heart is not dilated. No coronary artery calcifications are seen. No pericardial effusion. Aorta: Thoracic aorta non-dilated. Upper abdomen: Unremarkable. Lymph nodes: Within normal limits. The examination is limited by lack of IV contrast. Tubes, Catheters, and Lines: The right chest tube has been removed. Soft tissues: Moderate subcutaneous emphysema is seen over the right chest wall and neck. Bones:There is an old L1 compression deformity. IMPRESSION: 1. Interval increase in size of right pneumothorax since 05/08/2021. The pneumothorax is now moderate . 2. Interval development of a tiny left apical pneumothorax. 3. Right chest wall and neck subcutaneous emphysema. 4. Interval removal of the right chest tube. RADIATION DOSE DELIVERED: 481.43mGy.cm Total DLP 481.43mGy.cm Total DLP DATA REPOSITORY: All CT scans at this facility are submitted to the National Radiology Data Registry (NRDR) Dose Index Registry (DIR) with the [employer] (ACR). RADIATION OPTIMIZATION: All CT scans at this facility use at least one of these dose optimization te chniques: automated exposure control; mA and/or kV adjustment per patient size (includes targeted exa ms where dose is matched to clinical indication); or iterative reconstruction.
[2021-05-09] MEDS: Heparin 5,000 UNITS/ML VIAL 5000 UNITS SC (05:41)
[2021-05-09 06:53] LABS: Platelet Count 175 10^3/uL (130-400)
--- NOTE | 2021-05-09 10:29 | PDOC.CMPRO ---
- If Service Date Differs Date of service: 05/09/21 Time of Service: 10:29 Care Management Progress Note S/O: Francisco was sitting up in a chair when CM met with him. He was agreeable to conversation and pleasant in interaction. Francisco shared that the doctor told him he would come and remove his chest tube later today and, if he did well, would discharge him home after rechecking a chest xray 4 hours after tube removal. Francisco stated that he continues to feel well and denies pain or shortness of breath. A: Francisco is a 21 year old male admitted to [facility] for R pneumothorax on 05/04/21. P: Francisco will be discharged home with no new services. He will follow up with his surgeon, PCP and plan of care and transport with family. CM will continue to support Francisco and his discharge needs.
[2021-05-09 10:52] VITALS: RESP 14
[2021-05-09 15:26] VITALS: BP 123/78; PULSE 72; RESP 16; TEMP 37.2; O2SAT 98
--- NOTE | 2021-05-09 17:45 | DI.RAD_ITS ---
Exam(s) XR CHEST 2V PA LATERAL EXAM: XR CHEST 2V PA LATERAL CLINICAL HISTORY: post chest tube removal TECHNIQUE: 2D digital imaging was performed. COMPARISON: CR XR CHEST 2V PA LATERAL from 05/07/2021 FINDINGS: MEDIASTINUM: Normal. HEART: Normal. PULMONARY VASCULATURE: Normal. LUNGS: Clear. PLEURAL SPACE: There is a stable right pneumothorax. The superior aspect is at the level of the 4th rib. BONE:Within normal limits for the patient's age. OTHER FINDINGS:There has been interval removal of the right pigtail catheter. Subcutaneous emphysema is seen along the right chest wall. IMPRESSION: 1. Stable right pneumothorax. 2. Interval removal of the right chest tube. DATA REPOSITORY: RADIATION DOSE DELIVERED:
--- NOTE | 2021-05-09 18:37 | DI.VRAD_ITS ---
Addendum created by Bryan Gutierrez MD on 05/09/2021 9:18:32 PM EDT: Agree with interpretation. Findings discussed with Dr. Caballero. If clinically appropriate and further evaluation is desired, consider chest CT without IV contrast. Addendum created by Dorcas Howell MD on 05/09/2021 7:11:16 PM EDT: The study was personally discussed on the telephone with Alvin Lopez on 05/09/2021 7:10 PM EDT. The results were understood and acknowledged. Initial report created on 05/09/2021 6:37:05 PM EDT: PROCEDURE INFORMATION: Exam: XR Chest Exam date and time: 05/09/2021 5:55 PM Age: 21 years old Clinical indication: Device placement; Other: Post chest tube removal TECHNIQUE: Imaging protocol: XR of the chest. Views: 2 views. COMPARISON: CT CHEST W 05/08/2021 12:58 PM FINDINGS: Lungs: Unremarkable. No consolidation. Pleural spaces: Reaccumulation of a small right pneumothorax with 3 cm of apical pleural separation and 1.4 cm of lateral pleural separation. Heart/Mediastinum: Unremarkable. No cardiomegaly. Bones/joints: Unremarkable. Soft tissues: Status post right upper chest pigtail removal. IMPRESSION: Reaccumulation of a small right pneumothorax status post right upper pigtail chest tube removal. Dictated and Authenticated by: Bryan Gutierrez MD. Ordering:ROSA Esquivel MD
--- NOTE | 2021-05-09 19:00 | DI.RAD_ITS ---
Exam(s) XR CHEST 2V PA LATERAL EXAM: XR CHEST 2V PA LATERAL CLINICAL HISTORY: post chest tube removal TECHNIQUE: 2D digital imaging was performed. COMPARISON: CR,XR XR CHEST 2V PA LATERAL from 05/09/2021 FINDINGS: MEDIASTINUM: Normal. HEART: Normal. PULMONARY VASCULATURE: Normal. LUNGS: Clear. PLEURAL SPACE: There is a stable right pneumothorax. There is a question of a tiny left apical pneum othorax. BONE:Within normal limits for the patient's age. OTHER FINDINGS:Persistent subcutaneous emphysema is seen along the right chest wall. IMPRESSION: Stable right pneumothorax. DATA REPOSITORY: RADIATION DOSE DELIVERED:
--- NOTE | 2021-05-09 19:37 | DI.VRAD_ITS ---
Addendum created by Bryan Gutierrez MD on 05/09/2021 9:18:24 PM EDT: Agree with interpretation. Findings discussed with Dr. Caballero. If clinically appropriate and further evaluation is desired, consider chest CT without IV contrast. Initial report created on 05/09/2021 7:37:55 PM EDT: PROCEDURE INFORMATION: Exam: XR Chest Exam date and time: 05/09/2021 7:14 PM Age: 21 years old Clinical indication: Screening exam; Other screening; Patient HX: R pneumothorax, post chest tube removal TECHNIQUE: Imaging protocol: XR of the chest. Views: 2 views. COMPARISON: CR XR CHEST 2V PA LATERAL 05/09/2021 6:03 PM FINDINGS: Lungs: Unremarkable. No consolidation. Pleural spaces: Persistent small right pneumothorax with 3.1 cm of right apical pleural separation and 1.3 cm of lateral pleural separation. Heart/Mediastinum: Unremarkable. No cardiomegaly. Bones/joints: Unremarkable. Soft tissues: Persistent subcutaneous emphysema in the right lateral chest wall. IMPRESSION: Stable appearance of the small right pneumothorax. Dictated and Authenticated by: Bryan Gutierrez MD. Ordering:ROSA Esquivel MD
--- NOTE | 2021-05-09 22:22 | DI.VRAD_ITS ---
Addendum created by Franklin Baca MD on 05/09/2021 10:36:29 PM EDT: THIS REPORT CONTAINS FINDINGS THAT MAY BE CRITICAL TO PATIENT CARE. The findings were discussed with Alvin Caballero at 10:36 PM EDT on 05/09/2021. The findings were acknowledged and understood. Initial report created on 05/09/2021 10:21:48 PM EDT: PROCEDURE INFORMATION: Exam: CT Chest Without Contrast; Diagnostic Exam date and time: 05/09/2021 9:19 PM Age: 21 years old Clinical indication: Condition or disease; Patient HX: Right pneumothorax TECHNIQUE: Imaging protocol: Diagnostic computed tomography of the chest without contrast. 3D rendering (Not supervised by radiologist): MIP and/or 3D reconstructed images were created by the technologist. COMPARISON: CT CHEST W 05/08/2021 12:58 PM FINDINGS: Lungs: Unremarkable. No consolidation. No masses. Pleural spaces: Small right pneumothorax (15-20%). Heart: Unremarkable. No cardiomegaly. No pericardial effusion. Aorta: Unremarkable. No aortic aneurysm. Lymph nodes: Unremarkable. No enlarged lymph nodes. Bones/joints: Unremarkable. No acute fracture. Soft tissues: Right chest wall and cervical soft tissue gas. IMPRESSION: 1. Small right pneumothorax (15-20%). 2. Right chest wall and cervical soft tissue gas. Dictated and Authenticated by: Franklin Baca MD. Ordering:ROSA Esquivel MD
[2021-05-09 23:00] VITALS: BP 149/93; PULSE 67; RESP 16; TEMP 36.5; O2SAT 99
--- NOTE | 2021-05-10 00:47 | W.PM.PROGNOT ---
Date of Service Date of service: 05/09/21 Time of Service: 23:15 Assessment and Plan Assessment and plan (1) Spontaneous pneumothorax: Status: Acute Assessment and plan: Thoracostomy tube removed. I spent significant time talking to multiple radiologists tonight. Ultimately, the right lung is not from the lateral wall. If CXR in the morning does not show significant worsening, I will discharge the patient home Subjective Subjective Interval history since last seen: Patient seen and is completely asymptomatic. Chest tube was removed. Exam Const General: cooperative, healthy appearing and no acute distress [facility] Head: normal to inspection, normocephalic and atraumatic Eyes General: appearance normal, both eyes and all related structures Neck Neck: normal visual inspection, full ROM and trachea midline Chest Chest: normal palpation of entire chest wall, no localized rib tenderness and other (Right-sided pigtail thoracostomy tube in place) Resp Effort & Inspection: normal respiratory effort, able to speak in complete sentences and no tracheal deviation Cardio Rate: regular rate Rhythm: regular rhythm Pulses: dorsalis pedis present GI Inspection: normal to inspection Palpation: soft and nontender Back/Spine/Pelvis Back: no CVA tenderness Skin General skin exam: no rashes or lesions noted Neuro General: patient alert, patient awake and patient oriented x3 Extrem General: normal to inspection and full ROM Psych Appearance: grossly normal and well kempt Mental Status: mental status grossly normal Speech and Movement: speech and movement normal Objective Last Vital Signs Temp 97.7 F 05/09/21 23:00 Pulse 67 05/09/21 23:00 Resp 16 05/09/21 23:00 BP 149/93 H 05/09/21 23:00 Pulse Ox 99 05/09/21 23:00 Laboratory Results - last 24 hr 05/09/21 05:57 Plt Count 175
--- NOTE | 2021-05-10 07:00 | DI.RAD_ITS ---
Exam(s) XR CHEST 2V PA LATERAL EXAM: XR CHEST 2V PA LATERAL CLINICAL HISTORY: s/p thoracostomy tube removal TECHNIQUE: 2D digital imaging was performed. COMPARISON: CR,XR XR CHEST 2V PA LATERAL from 05/09/2021 FINDINGS: MEDIASTINUM: Normal. HEART: Normal. PULMONARY VASCULATURE: Normal. LUNGS: Clear. Stable lung volumes. PLEURAL SPACE: Stable pneumothorax. BONE:Within normal limits for the patient's age. OTHER FINDINGS:Stable subcutaneous emphysema. IMPRESSION: Stable examination. DATA REPOSITORY: RADIATION DOSE DELIVERED:
[2021-05-10 08:23] VITALS: BP 137/84; PULSE 74; RESP 18; TEMP 36.8; O2SAT 99
--- NOTE | 2021-05-10 09:58 | DI.VRAD_ITS ---
PROCEDURE INFORMATION: Exam: XR Chest Exam date and time: 05/10/2021 12:51 AM Age: 21 years old Clinical indication: Device placement; Other: S/P thoracostomy tube removal TECHNIQUE: Imaging protocol: XR of the chest. Views: 2 views. COMPARISON: CT CHEST WO 05/09/2021 9:34 PM FINDINGS: Lungs: Hyperinflation and interstitial prominence. Pleural spaces: Small residual right pneumothorax, which has not appreciably changed from the previous study. Heart/Mediastinum: Diminished heart size in association with hyperinflation. Bones/joints: Unremarkable. Soft tissues: Right-sided subcutaneous emphysema. IMPRESSION: Small residual right pneumothorax, which has not appreciably changed from the previous study. Dictated and Authenticated by: Ramon Julian MD. Ordering:ROSA Esquivel MD
--- NOTE | 2021-05-10 12:50 | PDOC.CMDIS ---
- If Service Date Differs Date of service: 05/10/21 Time of Service: 12:50 LACE Index Scoring Tool - Questions: Length of Stay (in days): 4 - 6 Acuity (Admit via E.D.?): Yes E.D. Visits: 1 - Answers: Total Score: 8 Risk of Readmission: Low Risk Care Management Discharge Reason for Hospitalization: pneumothorax Discharge Plan: Francisco will be discharged home with no new services. He will follow up with his surgeon, PCP and plan of care and transport with family. Patient/Family Education Needs: Review of discharge instructions, follow up plan, limitations, Ask Me Three
--- NOTE | 2021-05-13 10:41 | W.PM.DS.N ---
Date of service: 05/10/21 DS: Diagnosis Discharge Diagnosis (1) Spontaneous pneumothorax: Status: Acute Asessment and Plan: Patient received a thoracostomy tube on the right side which successfully reinflated the lung. He was in the hospital for several days with an air leak. Leak is resolved and chest tube was removed successfully without so long following prior to discharge. Discharge Plan Disposition Patient Disposition: HOME Condition: Improving Discharge Details Reason For Visit: Right pneumothorax Admit Date/Time: 05/04/21 16:55 Admit Provider: Alvin Caballero Attending Provider: Alvin Caballero Primary Care Provider: Juliano Cast Hospital Course Hospital Course: 21-year-old gentleman came in with a right-sided spontaneous pneumothorax. He got a right-sided thoracostomy tube in the ER. He had a small air leak for several days that eventually sealed. Chest tube was removed and lung stayed inflated on 4-hour repeat chest x-ray. Patient was discharged home with instructions to leave his bandage for 2 days. All questions were answered Home Meds and New Rx's Prescriptions: No Action omega-3 fatty acids 500 mg capsule 500 mg PO DAILY RF: 0 Discharge Instructions Instructions: Spontaneous Pneumothorax (DC) Additional Instructions: Do not remove chest dressing for 2 days. Do not shower for 2 days while the dressing is in place. No scuba diving or flying for 2 weeks. F/u with your primary care provider for any chest pain or shortness of breath. Stand Alone Forms: Nursing Discharge Form Referrals: Alvin Caballero DO [ CONSULTING PHYSICIAN] - (please follow up with office if for any shortness of breath, chest pain, as needed.) Juliano Cast MD [Primary Care Provider] - (as needed for shortness of breath or chest pain.) Activity:: Activity as Tolerated Equipment/Supplies:: none Diet:: Normal Diet Discharge Orders Discharge Orders: Discharge Order (Routine); Ordered 05/10/21 Ordered By: Alvin Caballero Discharge Data Discharge Date/Time-TO BE ENTERED AT DEPARTURE: 05/10/21 11:20 DS: Summary Time Spent with Patient providing and/or coordinating discharge services: Less than 30 minutes Status at Discharge Functional status at discharge: independent ambulation Overall status at discharge: patient is back to baseline Mental Status: mental status grossly normal Speech and Movement: speech and movement normal Mood: congruent mood Affect: normal affect Exam Const General: cooperative, healthy appearing and comfortable Chest Other: Dressing in place and dry Resp Effort & Inspection: normal respiratory effort, able to speak in complete sentences and no respiratory distress Cardio Jugular venous pressure: no JVD Rate: regular rate Rhythm: regular rhythm GI Inspection: normal to inspection Palpation: soft and nontender Neuro General: patient alert, patient awake and patient oriented x3 Psych Appearance: grossly normal Mental Status: mental status grossly normal Speech and Movement: speech and movement normal Mood: congruent mood Affect: normal affect DS: Data Vitals/I&O Vitals and I&O: Vital Signs Temperature 98.2 F 05/10/21 08:23 Temperature Source Temporal Artery Scan 05/10/21 08:23 Pulse 74 05/10/21 08:23 Pulse Rhythm Regular 05/10/21 08:30 Pulse 82 05/04/21 18:00 Respiratory Rate 18 05/10/21 08:23 Respiratory Effort Non-Labored 05/10/21 08:30 Respiratory Depth Normal 05/10/21 08:30 Respiratory Pattern Normal 05/10/21 08:30 Blood Pressure 137/84 05/10/21 08:23 Blood Pressure Mean 102 05/04/21 17:56 Blood Pressure Position Sitting 05/04/21 16:04 Pulse Oximetry 99 05/10/21 08:23 Oxygen Delivery Method Room Air 05/10/21 08:23 Oxygen Flow Rate 0 05/10/21 08:23 Pain Level 0 05/10/21 08:23 Comment 05/04/21 22:35 [facility] Medical History Acne vulgaris (02/06/18) Elevated blood pressure reading Fracture of humerus (03/15/13) Fall onto some rock. S/P closed reduction and percutaneous pinning; application of long arm splint. Routine sports examination for healthy child or adolescent (11/22/12) Varicocele (02/21/13) left- evaluated/followed by urology in the past Surgical History History of open reduction and internal fixation (ORIF) procedure Left arm 2013- humerus repaired. Social History Smoking/Tobacco Use Status: Never Second Hand Exposure: Yes (sister smokes) Smoking risk assessment performed?: Yes Alcohol Intake: never Drug use: Never Substance use type: does not use Household members: family and other Details: parents, sister/ sister's daughter Communication Needs: None Education Level: college Details: [employer] college- may go in person for the spring. 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
== END 2021-05-10 11:20 | disposition home or self-care (01) | DRG 201 ==
LOC: ER 17:52 → MS 18:07
PROVIDERS: Admitting Provider Surgery; Emergency Provider Registered Nurse Emergency; PCP Pediatrics; Visit Provider Surgery
DX: J93.83 Other pneumothorax (principal); I86.1 Scrotal varices; Z20.822 Contact with and (suspected) exposure to COVID-19
CPT/HCPCS: 32551; 36415; 71250; 80048; 80053; 87635; 99291; 71045; 71046; 71260; 85025; 85049; J1644; J2405; J3490

== ENCOUNTER 2023-04-19 12:36 | Outpatient (CLI) | payer OTHER, SELFPAY ==
--- NOTE | 2023-04-19 15:00 | DI.RAD_ITS ---
Exam(s) XR KNEE RT 3V AP,LAT,PHUONG EXAM: XR KNEE RT 3V AP,LAT,PHUONG CLINICAL HISTORY: Rt knee pain, M25.561, evaluate pathology. TECHNIQUE: 2D digital imaging was performed of the right knee. Three views obtained. AP, lateral an d PA tunnel views were obtained. COMPARISON: No priors for comparison. FINDINGS: BONES: No acute fracture is present. No bony destructive lesion is seen. JOINTS: The knee is normally aligned. No joint effusion is seen. SOFT TISSUE: Normal. IMPRESSION: Unremarkable radiographs of the right knee. DATA REPOSITORY: RADIATION DOSE DELIVERED:
== END 2023-04-19 12:56 ==
LOC: DI 07-26 12:37
PROVIDERS: PCP Pediatrics; Visit Provider Nurse Practitioner Family
DX: M25.561 Pain in right knee (principal)
CPT/HCPCS: 73562

== ENCOUNTER 2023-05-05 01:51 | Outpatient (CLI) | payer OTHER, SELFPAY ==
--- NOTE | 2023-05-05 16:00 | DI.MRI_ITS ---
Exam(s) MR LOWER JOINT RT WO EXAM: MR LOWER JOINT RT WO CLINICAL HISTORY: R KNEE INJURY,tear medial meniscus,[id number]. TECHNIQUE: Multiplanar multisequence MRI was performed. COMPARISON: CR XR KNEE RT 3V AP,LAT,PHUONG from 04/19/2023 FINDINGS: BONES: There is no evidence of a fracture. There is hyperintensity in the medial aspect of the media l tibial plateau and the lateral aspect of the lateral femoral condyle which may reflect contusions. JOINTS: Articular cartilage is unremarkable. No effusion is present. TENDONS: Extensor mechanism: Unremarkable. Medial retinaculum: Unremarkable. Lateral retinaculum: Unremarkable. Popliteus: Unremarkable. MUSCLES: Unremarkable. MENISCI: There is blunting of the free edge of the posterior horn of the medial meniscus suspicious f or tear. There is hypo intense tissue medial to the medial tibial plateau which may represent displa santiago meniscal material. The lateral meniscus is unremarkable. SOFT TISSUES: Unremarkable. LIGAMENTS: Anterior Cruciate: No evidence of a tear. There is hyperintense signal seen in the anterior cruciate ligament which may represent a sprain. Posterior Cruciate: Unremarkable. Medial Collateral:Unremarkable. Lateral Collateral: Unremarkable. OTHER: IMPRESSION: 1. Findings suspicious for tear along the free edge of the medial meniscus with displaced meniscal ma terial. 2. Small contusion involving the medial aspect of the medial tibial plateau. 3. Question of an ACL sprain. DATA REPOSITORY:
== END 2023-05-05 02:11 ==
PROVIDERS: PCP Pediatrics; Visit Provider Student in an Organized Health Care Education/Training Program
DX: S80.02XA Contusion of left knee, initial encounter; S83.511A Sprain of anterior cruciate ligament of right knee, initial encounter; X58.XXXA Exposure to other specified factors, initial encounter; M23.229 Derangement of posterior horn of medial meniscus due to old tear or injury, unspecified knee
CPT/HCPCS: 73721

== ENCOUNTER 2023-09-06 10:09 | Outpatient (CLI) | payer OTHER, SELFPAY ==
--- NOTE | 2023-09-06 09:54 | DI.RAD_ITS ---
Exam(s) XR FOOT RT COMPLETE EXAM: XR FOOT RT COMPLETE CLINICAL HISTORY: heel pain. TECHNIQUE: 2D digital imaging was performed of the right foot. Three images were obtained. AP, obl ique and lateral views were obtained. COMPARISON: No priors for comparison. FINDINGS: BONES: No acute fracture is present. No bony destructive lesion is seen. JOINTS: No dislocation present. The joint spaces are well maintained. SOFT TISSUE: There is a question of thickening of the soft tissues posterior to the calcaneus. This may represent Achilles tendon pathology. IMPRESSION: Soft tissue thickening posterior to the calcaneus which may represent Achilles tendinopathy. Please correlate clinically. If further evaluation is warranted, an MRI may be obtained. DATA REPOSITORY: RADIATION DOSE DELIVERED:
--- NOTE | 2023-09-06 09:54 | DI.RAD_ITS ---
Exam(s) XR FOOT LT COMPLETE EXAM: XR FOOT LT COMPLETE CLINICAL HISTORY: heel pain. TECHNIQUE: 2D digital imaging was performed of the left foot. Three images were obtained. AP, obli que and lateral views were obtained. COMPARISON: No exams were available for comparison FINDINGS: BONES: No acute fracture is present. No bony destructive lesion is seen. JOINTS: No dislocation present. The joint spaces are well maintained. SOFT TISSUE: Normal. IMPRESSION: Unremarkable radiographs of the left foot. DATA REPOSITORY: RADIATION DOSE DELIVERED:
== END 2023-09-06 10:10 | disposition home or self-care (01) ==
LOC: DIORS 10:09
PROVIDERS: PCP Pediatrics; Visit Provider Physician Assistant
DX: M92.61 Juvenile osteochondrosis of tarsus, right ankle (principal); M79.672 Pain in left foot
CPT/HCPCS: 73630

== ENCOUNTER → 2023-11-24 00:15 | Outpatient (CLI) | payer OTHER, SELFPAY ==
--- NOTE | 2023-11-24 15:10 | DI.MRI_ITS ---
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 TECHNIQUE: Multiplanar multisequence MRI was performed without intravenous contrast. COMPARISON: CR XR FOOT RT COMPLETE from 09/06/2023 FINDINGS: BONES/JOINTS: No fracture or contusion pattern. No bone lesions identified. The talar dome is smooth. The ankle mortise is maintained. There is a small joint effusion at the posterior talocalcaneal join t. LIGAMENTS: The tibiofibular and calcaneofibular ligaments are intact. The anterior talofibular ligame nt is intact. There is edema and some surrounding fluid thickening of the posterior talofibular liga ment. The deltoid ligament is intact. The syndesmosis is unremarkable. Sinus tarsi is normal. MUSCULOTENDINOUS STRUCTURES: Achilles tendon: Unremarkable. Plantar fascia: Unremarkable. Anterior Extensor tendons: Unremarkable. Posterior Tibialis: Unremarkable. Flexor Digitorum longus: Unremarkable. Flexor Hallucis longus: Unremarkable. Peroneus longus: Unremarkable. Peroneus brevis:Unremarkable. SOFT TISSUES: Soft tissue edema posterior to lateral aspect of distal Achilles tendon and calcaneus. Small amount of fluid in Achilles bursa. IMPRESSION: Achilles tendon is intact. Small amount of fluid in the Achilles bursa and posterior to lateral aspe ct of Achilles tendon. Thickening and edema of the posterior talofibular ligament could indicate sprain. DATA REPOSITORY:
--- NOTE | 2023-11-24 15:40 | DI.MRI_ITS ---
Exam(s) MR LOWER JOINT LT WO EXAM: MR LOWER JOINT LT WO CLINICAL HISTORY: HAGLUNDS DEFORMITY BILAT M92.61 M92.62 BILAT ACHILLES BURSITIS M76.61M76.62 TECHNIQUE: Multiplanar multisequence MRI was performed without intravenous contrast. COMPARISON: CR XR FOOT RT COMPLETE from 09/06/2023 MR MR LOWER JOINT RT WO from 11/24/2023 FINDINGS: BONES/JOINTS: No fracture or contusion pattern. No bone lesions identified. The talar dome is smooth. The ankle mortise is maintained. A joint effusion versus ganglion or synovial cyst is seen at the po sterior talocalcaneal joint effusion is present. LIGAMENTS: The tibiofibular and calcaneofibular ligaments are intact. The thickening and surrounding edema of the posterior talofibular ligament. Anterior talofibular ligament appears normal.. The del toid ligament is intact. The syndesmosis is unremarkable. Sinus tarsi is normal. MUSCULOTENDINOUS STRUCTURES: Achilles tendon: Unremarkable. Plantar fascia: Unremarkable. Anterior Extensor tendons: Unremarkable. Posterior Tibialis: Unremarkable. Flexor Digitorum longus: Unremarkable. Flexor Hallucis longus: Unremarkable. Peroneus longus: Unremarkable. Peroneus brevis:Unremarkable. SOFT TISSUES: Minimal soft tissue edema posterior to calcaneal tuberosity. Minimal fluid at Achilles bursa. Mild soft tissue edema in medial greatest medially. OTHER FINDINGS: None. IMPRESSION: Posterior talocalcaneal joint effusion versus synovial cyst. Minimal soft tissue edema posterior to calcaneal tuberosity and in Achilles bursa. Question posterior talofibular ligament sprain versus surrounding fluid. DATA REPOSITORY:
== END ==
PROVIDERS: Visit Provider Physician Assistant
DX: M25.475 Effusion, left foot (principal)
CPT/HCPCS: 73721